=== PATIENT | female | born 1940 | race Caucasian/White ===

== ENCOUNTER 2024-07-17 11:56 | Emergency (ER) | payer MEDICARE, OTHER ==
[~2024-07-17] VITALS: Ht 152.4 cm; Wt 72.6 kg
[2024-07-17 12:28] LABS: BASOPHILS % (AUTO) 0.5 % (0.0-2.0); EOSINOPHILS # (AUTO) 0.3 K/uL (0.0-0.7); EOSINOPHILS % (AUTO) 5.9 % (0.0-7.0); HEMATOCRIT 26.8 % (31.2-41.9); HEMOGLOBIN 8.4 g/dL (10.9-14.3); LYMPHOCYTES # (AUTO) 1.3 K/uL (0.8-4.8); LYMPHOCYTES % (AUTO) 24.3 % (20.5-51.5); MEAN CORPUSCULAR HEMOGLOBIN 22.3 uug (24.7-32.8); MEAN CORPUSCULAR HGB CONC 31 g/dL (32.3-35.6); MEAN CORPUSCULAR VOLUME 71.4 fL (75.5-95.3); MONOCYTES # (AUTO) 0.5 K/uL (0.1-1.30); NEUTROPHILS # (AUTO) 3.1 K/uL (1.8-8.9); NEUTROPHILS % (AUTO) 60.3 % (38.5-71.5); PLATELET COUNT (AUTO) 157 K/uL (179-408); RED BLOOD CELL COUNT(AUTO) 3.75 MIL/uL (3.63-4.92); RED CELL DISTRIBUTION WIDTH 20.5 % (12.3-17.7); WHITE BLOOD COUNT (AUTO) 5.1 K/uL (3.8-11.8)
[2024-07-17 12:34] LABS: DIFFERENTIAL COMMENT 1
[2024-07-17] MEDS ORDERED: ATEN50TA PO (12:39)
[2024-07-17] MEDS ORDERED: vibegron PO (12:39)
[2024-07-17] MEDS ORDERED: ESOM40CA PO (12:39)
[2024-07-17] MEDS ORDERED: ROSU5TAB13 PO (12:39)
[2024-07-17] MEDS ORDERED: BIOT5000 PO (12:39)
[2024-07-17] MEDS ORDERED: METF-440 PO (12:39)
[2024-07-17] MEDS ORDERED: ASPI81TA31 PO (12:39)
[2024-07-17] MEDS ORDERED: CHOL2000 PO (12:39)
[2024-07-17] MEDS ORDERED: LEVO88TA2 PO (12:39)
[2024-07-17] MEDS ORDERED: SERT-440 PO (12:39)
[2024-07-17] MEDS ORDERED: ESTR0.3T3 PO (12:39)
[2024-07-17] MEDS ORDERED: DAPA10TA PO (12:39)
[2024-07-17] MEDS ORDERED: PANT40TA49 PO (12:39)
[2024-07-17] MEDS ORDERED: RISP0.5T5 PO (12:39)
[2024-07-17 12:48] LABS: CALCIUM 8.3 mg/dL (8.5-10.1); CARBON DIOXIDE 23 mmol/L (21-32); CHLORIDE 108 mmol/L (98-107); GLUCOSE 109 mg/dL (74-106); SODIUM SERUM 144 mmol/L (136-145); UREA NITROGEN, BLOOD 29 mg/dL (7-18)
[2024-07-17 13:00] LABS: ALANINE AMINOTRANSFERASE 15 U/L (14-59); ALBUMIN 2.9 g/dL (3.4-5.0); ALKALINE PHOSPHATASE 70 U/L (50-136); ASPARTATE AMINOTRANSFERASE 17 U/L (15-37); BILIRUBIN,DIRECT 0.1 mg/dL (0.0-0.2); BILIRUBIN,TOTAL 0.2 mg/dL (0.2-1.0); NT-PRO BNP 1242 pg/mL (0-125); TOTAL PROTEIN, SERUM 6.3 g/dL (6.4-8.2)
[2024-07-17] MEDS ORDERED: FUROSEMIDE 40 MG/4 ML VIAL ONE (13:45)
[2024-07-17] MEDS: FUROSEMIDE 40 MG/4 ML VIAL IV ONE (13:50)
[2024-07-17 14:33] LABS: *BILIRUBIN,URIN NEGATIVE (NEGATIVE); *BLOOD, URINE NEGATIVE (NEGATIVE); *CLARITY,URINE CLEAR (CLEAR); *KETONES,URINE NEGATIVE (NEGATIVE); *PROTEIN,URINE NEGATIVE (NEGATIVE); *UROBILINOGEN,URINE 0.2 E.U./dl (NORMAL); LEUKOCYTE ESTERASE ,URINE TRACE (NEGATIVE); NITRITE, URINE NEGATIVE (NEGATIVE); PH,URINE 5.5 (5.0-8.0); UGLUCOSE 1+ (NEGATIVE)
[2024-07-17 14:46] LABS: *COLOR,URINE LIGHT YELLOW (YELLOW)
[2024-07-17 14:50] LABS: BACTERIA,URINE NONE SEEN /HPF (NONE SEEN); RBC,URINE NONE SEEN /HPF (0-3); SQUAMOUS EPITHELIAL CELL,UR FEW /HPF (NONE SEEN); WBC,URINE 0-3 /HPF (0-3)
[2024-07-17] MEDS ORDERED: FURO20TA4 PO (15:15)
[2024-07-17 16:04] VITALS: BP 125/60; TEMP 97.9; O2SAT 98
== END 2024-07-17 16:05 | disposition home or self-care (01) ==
LOC: ER 11:56
DX: I50.9 Heart failure, unspecified (principal); E03.9 Hypothyroidism, unspecified; E11.9 Type 2 diabetes mellitus without complications; E78.5 Hyperlipidemia, unspecified; K21.9 Gastro-esophageal reflux disease without esophagitis; R22.43 Localized swelling, mass and lump, lower limb, bilateral; R06.02 Shortness of breath; F32.A Depression, unspecified; F03.90 Unspecified dementia, unspecified severity, without behavioral disturbance, psychotic disturbance, mood disturbance, and anxiety; Z79.82 Long term (current) use of aspirin; Z79.84 Long term (current) use of oral hypoglycemic drugs; Z79.899 Other long term (current) drug therapy
CPT/HCPCS: 99285; 74176; 93970; 96374; 71045; 80076; 80048; 81001; 83880; 85025; 84145; 85730; 87040 ×2; 87086; 84484 ×2; 93005; 83605; J1938; A4606; A4663